=== PATIENT | female | born 1950 | race Caucasian/White ===

== ENCOUNTER 2018-03-10 09:32 | Day surgery (SDC) | payer MEDICARE ==
[2018-03-10 10:41] VITALS: BMI 26.1
[2018-03-10] MEDS ORDERED: Midazolam 2 MG/2 ML VIAL ONE (12:11)
[2018-03-10] MEDS ORDERED: Propofol 10 mg/ml Inj (20 ML) ONE ×2 (12:11)
[2018-03-10 13:03] VITALS: TEMP 98
[2018-03-10 13:06] VITALS: O2SAT 100
[2018-03-10 13:36] VITALS: BP 121/62; PULSE 65; RESP 13
== END 2018-03-10 14:10 | disposition home or self-care (01) ==
LOC: C.ENDO 09:32
PROVIDERS: ATTEND Internal Medicine Gastroenterology
DX: Z12.11 Encounter for screening for malignant neoplasm of colon (principal); K64.1 Second degree hemorrhoids; D12.3 Benign neoplasm of transverse colon
CPT/HCPCS: 45380; 82948; 88305; J2250; J2704

== ENCOUNTER 2018-10-07 07:14 | Day surgery (SDC) | payer MEDICARE, MEDICAID ==
--- NOTE | 2018-10-07 08:29 | CP.SDSHP ---
Same Day Surgery H & P - History Proposed Procedure: colonoscopy Pre-Op Diagnosis: screening - Previous Medical/Surgical History Cardiac: Hypertension Endocrine/Metabolic: Diabetes - Allergies Allergies: Allergies No Known Allergies Allergy (Verified 10/07/18 07:35) - Physical Exam General Appearance: NAD Vital Signs: Vital Signs 10/07/18 07:40 Temperature 98.2 F Pulse Rate 95 H Respiratory 17 Rate Blood Pressure 121/75 O2 Sat by Pulse 97 Oximetry Mental Status: Alert & Oriented x3 Neuro: WNL Heart: WNL Lungs: WNL GI: WNL - {Optional Preform as Required} Abdomen: WNL - Impression Pt. Evaluated Today:Candidate for Anesthesia & Procedure: Yes - Date & Time Date: 10/07/18 Time: 08:29 Short Stay Discharge - Short Stay Discharge Admitting Diagnosis/Reason for Visit: SCREENING Disposition: HOME/ ROUTINE
[2018-10-07] MEDS ORDERED: Propofol 10 mg/ml Inj (20 ML) ONE ×2 (08:32→09:04)
[2018-10-07 12:33] VITALS: BMI 25.4
[2018-10-07 12:36] VITALS: BP 111/68; PULSE 95; RESP 17; TEMP 98.2; O2SAT 97
== END 2018-10-07 10:13 | disposition home or self-care (01) ==
LOC: C.ENDO 07:14
PROVIDERS: ATTEND Internal Medicine Gastroenterology
DX: Z12.11 Encounter for screening for malignant neoplasm of colon (principal); D12.0 Benign neoplasm of cecum; D12.5 Benign neoplasm of sigmoid colon; D12.3 Benign neoplasm of transverse colon; K64.8 Other hemorrhoids
CPT/HCPCS: 45380; 45385; 82948; 88305; J2001; J2704; J7040